=== PATIENT | female | born 1960 | race Caucasian/White ===

== ENCOUNTER 2016-09-24 06:40 | Day surgery (SDC) | payer BC ==
[2016-09-24] MEDS ORDERED: Sodium Chloride 0.9% 10 ML Syringe FLUSH PRN (06:45)
[2016-09-24] MEDS ORDERED: Lactated Ringers 1,000 ML IV SCH (06:45)
[2016-09-24] MEDS ORDERED: Propofol 200 MG/20 ML SDV IV ONE (08:00)
[2016-09-24] MEDS ORDERED: Lidocaine 2% 100 MG/5 ML Syringe IVPUSH ONE (08:00)
[2016-09-24] MEDS ORDERED: Midazolam 1 MG/ML 2 ML SDV IV ONE (08:00)
--- NOTE | 2016-09-24 08:44 | PCM.OPNOTE ---
- General Post-Op/Procedure Note Date of Surgery/Procedure: 09/24/16 Operative Procedure(s): c scope with biopsy Findings: hepatic flexure polyps x 3 distal transverse colon polyp x2 Pre Op Diagnosis: hx of colon polyps with low grade dysplasia Post-Op Diagnosis: hepatic flexure polyps x 3. distal transverse colon polyp x2 Anesthesia Technique: MAC Primary Surgeon: Dominick Morales Anesthesia Provider: Latha Wilson Pathology: hepatic flexure polyps x 3 distal transverse colon polyp x2 Complications: None Condition: Good Free Text/Narrative:: see dictation
[2016-09-24 10:05] VITALS: BP 120/72
--- NOTE | 2016-09-24 14:01 | OR ---
DATE OF OPERATION: 09/24/2016 SURGEON: Dominick Morales MD PROCEDURE PERFORMED: Colonoscopy with cold forceps biopsy. PREOPERATIVE DIAGNOSIS: Personal history of dysplastic colon polyps. POSTOPERATIVE DIAGNOSIS: Hepatic flexure polyps x3 and distal transverse colon polyp x2. INDICATIONS FOR PROCEDURE: This is a 55-year-old white female, who had a colonoscopy last approximately 6 months ago. She had several polyps removed, which demonstrated some dysplasia. She presents now for followup scope. DESCRIPTION OF OPERATION: After an excellent IV sedation was administered, digital rectal exam was performed. No marked abnormality was noted. The flexible colonoscope was inserted and advanced to the cecum without difficulty. The following findings were noted. Ascending colon, unremarkable. Transverse colon; in the previously tattooed the area, there were several flat plaques that were biopsied and sent for permanent. These were all within 2 cm of each other, a total of 3. Then in the distal transverse colon, 2 more similar flap plaques were encountered. These were biopsied and sent for permanent as well. The descending colon was unremarkable. The sigmoid was unremarkable. The rectum and anus were unremarkable. The colon was deflated, as the scope was removed. The patient tolerated the procedure well and was taken to recovery room in good condition. /[id number] /MODL
== END 2016-09-24 09:54 | disposition home or self-care (01) ==
LOC: FB.SDS 06:40
PROVIDERS: ATTEND Surgery
PROC: 0DBL8ZX Excision of Transverse Colon, Via Natural or Artificial Opening Endoscopic, Diagnostic (ICD-10-PCS; principal; 2016-09-24)
PROC: 0DBF8ZX Excision of Right Large Intestine, Via Natural or Artificial Opening Endoscopic, Diagnostic (ICD-10-PCS; 2016-09-24)
DX: D12.3 Benign neoplasm of transverse colon (principal); Z86.010 Personal history of colon polyps; Z79.899 Other long term (current) drug therapy; Z88.8 Allergy status to other drugs, medicaments and biological substances; Z87.891 Personal history of nicotine dependence
CPT/HCPCS: 45380; 88305; J2250; J2704; J7120

== ENCOUNTER 2017-08-08 06:36 | Day surgery (SDC) | payer BC ==
[2017-08-08] MEDS ORDERED: Sodium Chloride 0.9% 10 ML Syringe FLUSH PRN (06:45)
[2017-08-08] MEDS ORDERED: Lactated Ringers 1,000 ML IV SCH (06:45)
[2017-08-08] MEDS ORDERED: Midazolam 1 MG/ML 2 ML SDV IV ONE (08:15)
[2017-08-08] MEDS ORDERED: Propofol 200 MG/20 ML SDV IV ONE (08:15)
--- NOTE | 2017-08-08 08:57 | PCM.OPNOTE ---
- General Post-Op/Procedure Note Date of Surgery/Procedure: 08/08/17 Operative Procedure(s): c scope with bx Findings: polyps at hepatic and transverse colon Pre Op Diagnosis: hx of colon polyps with low grade dysplasia Post-Op Diagnosis: polyps at hepatic and transverse colon Anesthesia Technique: MAC Primary Surgeon: Dominick Morales Anesthesia Provider: Kaci Ni Pathology: polyps at hepatic and transverse colon Complications: None Condition: Good Free Text/Narrative:: see dictation
[2017-08-08 10:21] VITALS: BP 109/65
--- NOTE | 2017-08-08 17:12 | OR ---
DATE OF OPERATION: 08/08/2017 SURGEON: Dominick Morales MD PROCEDURE PERFORMED: Colonoscopy with cold forceps biopsy. PREOPERATIVE DIAGNOSES: History of recurrent hepatic flexure and proximal transverse colon polyps. POSTOPERATIVE DIAGNOSES: Hepatic flexure and proximal transverse colon polyps. INDICATIONS FOR PROCEDURE: This is a 56-year-old white female who has undergone several colonoscopies in the past. She has a history of colonic polyps that developed at the hepatic flexure, these contain low-grade dysplasia. She presents now for followup colonoscopy. DESCRIPTION OF PROCEDURE: After an excellent IV sedation was administered, digital rectal exam was performed, no marked abnormality was noted. Flexible colonoscope was inserted and advanced to the cecum. The prep was excellent. The following findings were noted. Ascending colon unremarkable. Hepatic flexure and proximal transverse colon contained a total of 5 flat plaque-like lesions that appeared to recur in the same area as there was a previous marked tattoo. These were biopsied and submitted in 2 separate containers. Remainder of the transverse colon was unremarkable. The descending colon was unremarkable. Sigmoid and rectum was unremarkable. The colon was deflated as the scope was removed. The patient tolerated the procedure well and was taken to recovery room in good condition. /[id number] /MODL
== END 2017-08-08 09:52 | disposition home or self-care (01) ==
LOC: FB.SDS 06:36
PROVIDERS: ATTEND Surgery
DX: Z09 Encounter for follow-up examination after completed treatment for conditions other than malignant neoplasm (principal); D12.3 Benign neoplasm of transverse colon; Z86.010 Personal history of colon polyps; Z79.899 Other long term (current) drug therapy; Z88.8 Allergy status to other drugs, medicaments and biological substances; Z85.3 Personal history of malignant neoplasm of breast; Z87.891 Personal history of nicotine dependence
CPT/HCPCS: 45380; 88305; J2250; J2704; J7120

== ENCOUNTER 2018-01-16 06:25 | Inpatient (IN) | payer BC ==
[2018-01-16] MEDS: Lactated Ringers 1,000 ML IV SCH ×3 (07:25→20:52)
[2018-01-16] MEDS ORDERED: Neostigmine Methylsulfate 10 MG/10 ML MDV IVPUSH ONE (08:00)
[2018-01-16] MEDS ORDERED: cefOXitin 1 GM in Premix Bag 1 BAG IV ONE (08:00)
[2018-01-16] MEDS ORDERED: Midazolam 1 MG/ML 2 ML SDV IV ONE (08:00)
[2018-01-16] MEDS ORDERED: Propofol 200 MG/20 ML SDV IV ONE (08:00)
[2018-01-16] MEDS ORDERED: Glycopyrrolate 0.2 MG/ML 5 ML MDV IV ONE (08:00)
[2018-01-16] MEDS ORDERED: Lactated Ringers 1,000 ML IV ONE (08:00)
[2018-01-16] MEDS ORDERED: fentaNYL 100 MCG/2 ML SDV IV ONE (08:00)
[2018-01-16] MEDS ORDERED: Dexamethasone 4 MG/ML 5 ML MDV IVPUSH ONE (08:00)
[2018-01-16] MEDS ORDERED: HYDROmorphone 2 MG/ML SDV IV ONE (08:00)
[2018-01-16] MEDS ORDERED: Ketorolac 30 MG/ML SDV IVPUSH ONE (08:00)
[2018-01-16] MEDS ORDERED: Phenylephrine 1% 10 MG/ML SDV IV ONE (08:00)
[2018-01-16] MEDS ORDERED: Ondansetron 4 MG/2 ML SDV IVPUSH ONE (08:00)
[2018-01-16] MEDS ORDERED: Rocuronium 100 MG/10 ML MDV IV ONE (08:00)
[2018-01-16] MEDS ORDERED: Ondansetron 4 MG/2 ML SDV IVPUSH PRN (09:39)
--- NOTE | 2018-01-16 09:39 | PCM.OPNOTE ---
- General Post-Op/Procedure Note Date of Surgery/Procedure: 01/16/18 Operative Procedure(s): transverse colon resection Findings: tattoo from previous endoscopies in mid transverse colon resected with 4 cm margin either side. Pre Op Diagnosis: hx of recurrent dysplastic polyp transverse colon Post-Op Diagnosis: Same Anesthesia Technique: General ET Tube Primary Surgeon: Dominick Morales Anesthesia Provider: Husam Sherwood Pathology: transverse colon Fluid Replacement, Intraop: 2,300 Output, Urine Amount: 100 EBL in mLs: 50 Complications: None Condition: Good Free Text/Narrative:: see dictation
[2018-01-16] MEDS ORDERED: cefOXitin 2 GM in Sodium Chloride 0.9% 50 ML IV SCH (09:45)
[2018-01-16] MEDS ORDERED: Naloxone 0.4 MG/ML SDV IVPUSH PRN (10:04)
[2018-01-16] MEDS: Morphine PF 30 MG/30 ML PCA Vial IV SCH (11:08)
[2018-01-16] MEDS: cefOXitin 2 GM Vial IV SCH ×2 (13:52→20:05)
--- NOTE | 2018-01-16 14:49 | OR ---
DATE OF OPERATION: 01/16/2018 SURGEON: Dominick Morales MD PROCEDURES PERFORMED: Transverse colon resection. PREOPERATIVE DIAGNOSIS: Recurrent dysplastic polyp of the transverse colon. POSTOPERATIVE DIAGNOSIS: Recurrent dysplastic polyp of the transverse colon. INDICATIONS FOR PROCEDURE: This is a 57-year-old white female who has been undergoing recurrent endoscopies every 6 months since we found a sessile dysplastic polyp. On endoscopy, it appeared to be near the hepatic flexure. The area was tattooed and did recur every 6 months, and had some low-grade dysplasia. Due to her inability to obliterate it endoscopically, she was offered and accepted a colon resection. INTRAOPERATIVE FINDINGS: We had originally, based on her endoscopic examination, thought that the polyp was closer to the hepatic flexure. We had prepared the patient for a possible hemicolectomy. However, on inspecting the patient's colon, the tattoo was mid-transverse colon, and this was the area that was resected, approximately 4 cm margin on either side of the area that was tattooed. DESCRIPTION OF PROCEDURE: After an excellent general anesthetic was administered, the patient was prepped and draped in the usual sterile manner. A midline incision was made from the xiphoid process down to just below the umbilicus. Underlying subcu fat was divided using electrocautery and the abdominal cavity was entered. Palpation of the liver and spleen were unremarkable. NG tube appeared to be nicely in the stomach. On inspection of the transverse colon, the marked area was mid-transverse colon, right at the apex of the middle colic vessel. Using the LigaSure, we divided the omentum on either side of this area, approximately 4 cm on each side from the tattooed area. This was carried down to the level of the colon. A small rent was made in the mesocolon, and this was then transected using a LUZ. Given the fact that we knew that this was essentially a benign lesion, we elected just to do a resection of the colon itself and therefore the LigaSure was used to divide the mesentery at the base of the colon. The specimen was then passed off the field. The 2 ends of the colon were then anastomosed with a hand-sewn anastomosis. We started posteriorly, placing a posterior row of interrupted 3-0 Vicryl. We then excised the staple lines after placing bowel clamps on either side of the colon. The innermost layer of the 2 layers was performed using a running 3-0 Vicryl. This was done starting at the midline posteriorly with a simple running suture until we came to the lateral edges of the anastomosis, where a transition stitch was done and we went to a [place] stitch. After closing the inner layer, the Alena stitch was then imbricated using a Lembert stitch of interrupted 3-0 Vicryl. The bowel clamps were released, and the mesentery defect was closed using a running 0 Vicryl. The anastomosis was felt to be patent, and we were able to slosh air from the distal transverse colon through across the anastomosis without any apparent leak. The abdominal cavity was irrigated. The intestines were returned to normal anatomic positions. The midline fascia was closed with a running #2 Prolene and yovanny were used to close the skin. Needle, sponge, and instrument counts were reported as correct. Estimated blood loss was 50 mL. 100 mL of urine was out during the case. She received approximately 2300 mL of crystalloid. /[id number] /MODL
[2018-01-17] MEDS: Lactated Ringers 1,000 ML IV SCH ×2 (04:51→04:52)
[2018-01-17] MEDS: Morphine PF 30 MG/30 ML PCA Vial IV SCH (06:46)
[2018-01-17] MEDS: D5 1/2 NS w/ 20 mEq/L KCl 1,000 ML IV SCH ×2 (08:53→16:57)
[2018-01-17] MEDS: Enoxaparin 40 MG/0.4 ML Syringe SUBCUT SCH (09:25)
--- NOTE | 2018-01-17 10:08 | PCM.SURGPN ---
- General Info Date of Service: 01/17/18 POD#: 1 Functional Status: Reports: Pain Controlled - Review of Systems General: Reports: No Symptoms HEENT: Reports: No Symptoms Pulmonary: Reports: No Symptoms Cardiovascular: Reports: No Symptoms Gastrointestinal: Reports: No Symptoms. Denies: Flatus Neurological: Reports: Other (light headedness) - Patient Data Vitals - Most Recent: Last Vital Signs Temp 98.1 F 01/17/18 07:20 Pulse 67 01/17/18 07:20 Resp 18 01/17/18 07:20 BP 95/66 01/17/18 07:20 Pulse Ox 93 L 01/17/18 07:20 Weight - Most Recent: 68.492 kg I&O - Last 24 Hours: Intake & Output 01/16/18 01/17/18 01/17/18 22:59 06:59 14:59 Intake Total 1189 882 500 Output Total 600 525 Balance 589 357 500 Lab Results Last 24 Hrs: Laboratory Results - last 24 hr 01/17/18 01/17/18 Range/Units 06:20 06:20 WBC 13.8 H (4.5-12.0) X10-3/uL RBC 3.28 (3.23-5.20) x10(6)uL Hgb 10.7 L D (11.5-15.5) g/dL Hct 32.0 D (30.0-51.3) % MCV 97.7 H (80-96) fL MCH 32.6 (27.7-33.6) pg MCHC 33.4 (32.2-35.4) g/dL RDW 13.1 (11.5-15.5) % Plt Count 247 (125-369) X10(3)uL MPV 8.2 (7.4-10.4) fL Add Manual Diff Yes Neutrophils % (Manual) 80 (46-82) % Band Neutrophils % 3 (0-6) % Lymphocytes % (Manual) 15 (13-37) % Monocytes % (Manual) 2 L (4-12) % Sodium 140 (135-145) mmol/L Potassium 4.4 (3.5-5.3) mmol/L Chloride 106 (100-110) mmol/L Carbon Dioxide 24 (21-32) mmol/L BUN 9 (7-18) mg/dL Creatinine 0.7 (0.55-1.02) mg/dL Est Cr Clr Drug Dosing 75.65 mL/min Estimated GFR (MDRD) > 60 (>60) BUN/Creatinine Ratio 12.9 (9-20) Glucose 110 (80-116) mg/dL Calcium 9.0 (8.6-10.2) mg/dL Med Orders - Current: Current Medications Enoxaparin Sodium (Lovenox) 40 mg SUBCUT Q24H [facility] Last Admin: 01/17/18 09:25 Dose: 40 mg Potassium Chloride/Dextrose/Sod Cl (D5 1/2 Ns W/ 20 Meq/L Kcl) 1,000 mls @ 125 mls/hr IV Q8H [facility] Last Admin: 01/17/18 08:53 Dose: 125 mls/hr Morphine Sulfate (Morphine Food Trades Assistants 30 Mg In 30 Ml) 0 mg IV POSTPRO [facility]; Protocol Last Admin: 01/17/18 06:46 Dose: 30 mg Naloxone HCl (Narcan) 0.4 mg IVPUSH Q2M PRN PRN Reason: Respiratory Distress Ondansetron HCl (Zofran) 4 mg IVPUSH Q6H PRN PRN Reason: Nausea/Vomiting Discontinued Medications Cefoxitin Sodium (Mefoxin) 2 gm IV Q6H [facility] Stop: 01/16/18 20:01 Last Admin: 01/16/18 20:05 Dose: 2 gm Cefoxitin Sodium 1 gm/ Premix 50 mls @ 100 mls/hr IV ONETIME ONE Stop: 01/16/18 08:29 Last Admin: 01/16/18 07:59 Dose: 100 mls/hr Lactated Ringer's (Ringers, Lactated) 1,000 mls @ 125 mls/hr IV ASDIRECTED [facility] Last Admin: 01/17/18 04:52 Dose: 125 mls/hr Cefoxitin Sodium 2 gm/ Sodium (Chloride) 50 mls @ 100 mls/hr IV Q6H [facility] - Exam Wound/Incisions: Dressing Dry and Intact General: Alert, Oriented Lungs: Clear to Auscultation, Normal Respiratory Effort Cardiovascular: Regular Rate, Regular Rhythm GI/Abdominal Exam: Normal Bowel Sounds, Soft - Problem List & Annotations (1) Status post colectomy SNOMED Code(s): 824135228, 98619618, 53233821, 094539367 Code(s): Z90.49 - ACQUIRED ABSENCE OF OTHER SPECIFIED PARTS OF DIGESTIVE TRACT Status: Acute Current Visit: Yes Annotation/Comment:: transverse - Problem List Review Problem List Initiated/Reviewed/Updated: Yes - My Orders Last 24 Hours: Active Orders 24 hr Category Date Time Status Antiembolic Devices [RC] 08,16,00 Care 01/16/18 09:42 Active Communication Order [RC] ROUTINE Care 01/16/18 17:50 Active Communication Order [RC] STAT Care 01/16/18 10:04 Active Head of Bed Elevation [RC] 08,16,00 Care 01/16/18 09:40 Active Intake and Output [RC] ,, Care 01/16/18 09:40 Active Notify Provider Intake and Out [RC] ,, Care 01/16/18 09:41 Active Notify Provider Vital Signs [RC] PRN Care 01/16/18 09:40 Active Notify Provider [RC] PRN Care 01/16/18 10:04 Active Oxygen Therapy [RC] PRN Care 01/16/18 09:[address] MANAGER Record [RC] ,, Care 01/16/18 10:04 Active Pulse Oximetry [RC] CONTINUOUS Care 01/16/18 10:04 Active RT Incentive Spirometry [RC] Q2HWA Care 01/16/18 09:39 Active Up With Assistance [RC] 09,13,17,21 Care 01/16/18 09:39 Active Vital Signs [RC] 04,08,12,16,20,00 Care 01/16/18 09:39 Active D5 1/2 NS w/ 20 mEq/L KCl 1,000 ml Med 01/17/18 08:30 Active IV Q8H Enoxaparin [Lovenox] Med 01/17/18 09:00 Active 40 mg SUBCUT Q24H Morphine PF [Morphine PERFORMING [employer] MANAGER 30 MG in 30 ML] Med 01/16/18 09:45 Active 0 mg IV POSTPRO Naloxone [Narcan] Med 01/16/18 10:04 Active 0.4 mg IVPUSH Q2M PRN Ondansetron [Zofran] Med 01/16/18 09:39 Active 4 mg IVPUSH Q6H PRN DVT/VTE Prophylaxis Reflex [OM.PC] Per Unit Routine Oth 01/16/18 09:42 Ordered Medication Discontinuation Instructions [OM.PC] Stat Oth 01/16/18 10:04 Ordered Medication Orders Enoxaparin Sodium (Lovenox) 40 mg SUBCUT Q24H [facility] Last Admin: 01/17/18 09:25 Dose: 40 mg Potassium Chloride/Dextrose/Sod Cl (D5 1/2 Ns W/ 20 Meq/L Kcl) 1,000 mls @ 125 mls/hr IV Q8H [facility] Last Admin: 01/17/18 08:53 Dose: 125 mls/hr Morphine Sulfate (Morphine Food Trades Assistants 30 Mg In 30 Ml) 0 mg IV POSTPRO [facility]; Protocol Last Admin: 01/17/18 06:46 Dose: 30 mg Admin: 01/16/18 11:08 Dose: 30 mg Naloxone HCl (Narcan) 0.4 mg IVPUSH Q2M PRN PRN Reason: Respiratory Distress Ondansetron HCl (Zofran) 4 mg IVPUSH Q6H PRN PRN Reason: Nausea/Vomiting - Assessment Assessment (Free Text/Narrative):: doing well - Plan Plan (Free Text/Narrative):: d/c lawrence continue current rx sq lovenox.
[2018-01-18] MEDS: D5 1/2 NS w/ 20 mEq/L KCl 1,000 ML IV SCH ×3 (00:06→21:45)
--- NOTE | 2018-01-18 07:13 | PCM.SURGPN ---
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 ) - Patient Data Vitals - Most Recent: Last Vital Signs Temp 98.1 F 01/18/18 04:30 Pulse 71 01/18/18 04:30 Resp 20 01/18/18 04:30 BP 123/81 01/18/18 04:30 Pulse Ox 96 01/18/18 04:30 Weight - Most Recent: 68.492 kg I&O - Last 24 Hours: Intake & Output 01/17/18 01/18/18 01/18/18 22:59 06:59 14:59 Intake Total 1111 1120 Output Total 2300 2400 Balance -1189 -1280 Med Orders - Current: Current Medications Enoxaparin Sodium (Lovenox) 40 mg SUBCUT Q24H [facility] Last Admin: 01/17/18 09:25 Dose: 40 mg Potassium Chloride/Dextrose/Sod Cl (D5 1/2 Ns W/ 20 Meq/L Kcl) 1,000 mls @ 125 mls/hr IV Q8H [facility] Last Admin: 01/18/18 00:06 Dose: 125 mls/hr Morphine Sulfate (Morphine Exercise Rider 30 Mg In 30 Ml) 0 mg IV POSTPRO [facility]; Protocol Last Admin: 01/17/18 06:46 Dose: 30 mg Naloxone HCl (Narcan) 0.4 mg IVPUSH Q2M PRN PRN Reason: Respiratory Distress Ondansetron HCl (Zofran) 4 mg IVPUSH Q6H PRN PRN Reason: Nausea/Vomiting Discontinued Medications Cefoxitin Sodium (Mefoxin) 2 gm IV Q6H [facility] Stop: 01/16/18 20:01 Last Admin: 01/16/18 20:05 Dose: 2 gm Cefoxitin Sodium 1 gm/ Premix 50 mls @ 100 mls/hr IV ONETIME ONE Stop: 01/16/18 08:29 Last Admin: 01/16/18 07:59 Dose: 100 mls/hr Lactated Ringer's (Ringers, Lactated) 1,000 mls @ 125 mls/hr IV ASDIRECTED [facility] Last Admin: 01/17/18 04:52 Dose: 125 mls/hr Cefoxitin Sodium 2 gm/ Sodium (Chloride) 50 mls @ 100 mls/hr IV Q6H [facility] - Exam Wound/Incisions: Dressing Dry and Intact General: Alert, Cooperative, No Acute Distress Lungs: Clear to Auscultation, Normal Respiratory Effort Cardiovascular: Regular Rate, Regular Rhythm GI/Abdominal Exam: Normal Bowel Sounds, Soft, Other (mild incisional tenderness ) Skin: Warm, Dry, Intact - Problem List & Annotations (1) Status post colectomy SNOMED Code(s): 123445857, 31000022, 03043874, 921949593 Code(s): Z90.49 - ACQUIRED ABSENCE OF OTHER SPECIFIED PARTS OF DIGESTIVE TRACT Status: Acute Current Visit: Yes Annotation/Comment:: transverse - Problem List Review Problem List Initiated/Reviewed/Updated: Yes - My Orders Last 24 Hours: Active Orders 24 hr Category Date Time Status D5 1/2 NS w/ 20 mEq/L KCl 1,000 ml Med 01/17/18 08:30 Active IV Q8H Enoxaparin [Lovenox] Med 01/17/18 09:00 Active 40 mg SUBCUT Q24H Medication Orders Enoxaparin Sodium (Lovenox) 40 mg SUBCUT Q24H [facility] Last Admin: 01/17/18 09:25 Dose: 40 mg Potassium Chloride/Dextrose/Sod Cl (D5 1/2 Ns W/ 20 Meq/L Kcl) 1,000 mls @ 125 mls/hr IV Q8H [facility] Last Admin: 01/18/18 00:06 Dose: 125 mls/hr Infusion: 01/18/18 00:06 Dose: 125 mls/hr Admin: 01/17/18 16:57 Dose: 125 mls/hr Infusion: 01/17/18 16:53 Dose: 125 mls/hr Admin: 01/17/18 08:53 Dose: 125 mls/hr Morphine Sulfate (Morphine Exercise Rider 30 Mg In 30 Ml) 0 mg IV POSTPRO [facility]; Protocol Last Admin: 01/17/18 06:46 Dose: 30 mg Admin: 01/16/18 11:08 Dose: 30 mg Naloxone HCl (Narcan) 0.4 mg IVPUSH Q2M PRN PRN Reason: Respiratory Distress Ondansetron HCl (Zofran) 4 mg IVPUSH Q6H PRN PRN Reason: Nausea/Vomiting - Assessment Assessment (Free Text/Narrative):: Doing well mobilizing fluids - Plan Plan (Free Text/Narrative):: decrease IVF rate continue current rx.
[2018-01-18] MEDS: Enoxaparin 40 MG/0.4 ML Syringe SUBCUT SCH (08:50)
[2018-01-18] MEDS ORDERED: Morphine 2 MG/ML Syringe IVPUSH PRN (10:00)
--- NOTE | 2018-01-19 07:45 | PCM.SURGPN ---
- General Info Date of Service: 01/19/18 POD#: 3 Functional Status: Reports: Pain Controlled, Ambulating, Urinating, Incentive Spirometry - Review of Systems Gastrointestinal: Denies: Flatus - Patient Data Vitals - Most Recent: Last Vital Signs Temp 98.7 F 01/19/18 07:22 Pulse 57 L 01/19/18 07:22 Resp 12 01/19/18 07:22 BP 128/82 01/19/18 07:22 Pulse Ox 95 01/19/18 07:22 Weight - Most Recent: 68.492 kg I&O - Last 24 Hours: Intake & Output 01/18/18 01/19/18 01/19/18 22:59 06:59 14:59 Intake Total 576 613 Output Total 1100 600 Balance -524 13 Med Orders - Current: Current Medications Enoxaparin Sodium (Lovenox) 40 mg SUBCUT Q24H [facility] Last Admin: 01/18/18 08:50 Dose: 40 mg Potassium Chloride/Dextrose/Sod Cl (D5 1/2 Ns W/ 20 Meq/L Kcl) 1,000 mls @ 75 mls/hr IV Q8H [facility] Last Admin: 01/18/18 21:45 Dose: 125 mls/hr Morphine Sulfate (Morphine) 2 mg IVPUSH Q2H PRN PRN Reason: PAIN Ondansetron HCl (Zofran) 4 mg IVPUSH Q6H PRN PRN Reason: Nausea/Vomiting Discontinued Medications Cefoxitin Sodium (Mefoxin) 2 gm IV Q6H [facility] Stop: 01/16/18 20:01 Last Admin: 01/16/18 20:05 Dose: 2 gm Cefoxitin Sodium 1 gm/ Premix 50 mls @ 100 mls/hr IV ONETIME ONE Stop: 01/16/18 08:29 Last Admin: 01/16/18 07:59 Dose: 100 mls/hr Lactated Ringer's (Ringers, Lactated) 1,000 mls @ 125 mls/hr IV ASDIRECTED [facility] Last Admin: 01/17/18 04:52 Dose: 125 mls/hr Cefoxitin Sodium 2 gm/ Sodium (Chloride) 50 mls @ 100 mls/hr IV Q6H [facility] Morphine Sulfate (Morphine Absorption And Adsorption Engineer 30 Mg In 30 Ml) 0 mg IV POSTPRO PATTI; Protocol Last Admin: 01/17/18 06:46 Dose: 30 mg Morphine Sulfate (Morphine Sulfate) 2 mg IV Q2H PRN PRN Reason: PAIN Naloxone HCl (Narcan) 0.4 mg IVPUSH Q2M PRN PRN Reason: Respiratory Distress - Exam Wound/Incisions: Dressing Dry and Intact General: Alert, Cooperative, No Acute Distress Lungs: Clear to Auscultation, Normal Respiratory Effort Cardiovascular: Regular Rate, Regular Rhythm GI/Abdominal Exam: Normal Bowel Sounds, Soft, No Distention Skin: Warm, Dry, Intact - Problem List & Annotations (1) Status post colectomy SNOMED Code(s): 565055500, 64600875, 14611971, 571446881 Code(s): Z90.49 - ACQUIRED ABSENCE OF OTHER SPECIFIED PARTS OF DIGESTIVE TRACT Status: Acute Current Visit: Yes Annotation/Comment:: transverse - Problem List Review Problem List Initiated/Reviewed/Updated: Yes - My Orders Last 24 Hours: Active Orders 24 hr Category Date Time Status May Shower [RC] ASDIRECTED Care 01/19/18 07:43 Ordered Morphine Med 01/18/18 10:00 Active 2 mg IVPUSH Q2H PRN Medication Orders Enoxaparin Sodium (Lovenox) 40 mg SUBCUT Q24H [facility] Last Admin: 01/18/18 08:50 Dose: 40 mg Admin: 01/17/18 09:25 Dose: 40 mg Potassium Chloride/Dextrose/Sod Cl (D5 1/2 Ns W/ 20 Meq/L Kcl) 1,000 mls @ 75 mls/hr IV Q8H [facility] Last Admin: 01/18/18 21:45 Dose: 125 mls/hr Infusion: 01/18/18 15:54 Dose: 125 mls/hr Admin: 01/18/18 07:54 Dose: 125 mls/hr Infusion: 01/18/18 07:54 Dose: 125 mls/hr Admin: 01/18/18 00:06 Dose: 125 mls/hr Infusion: 01/18/18 00:06 Dose: 125 mls/hr Admin: 01/17/18 16:57 Dose: 125 mls/hr Infusion: 01/17/18 16:53 Dose: 125 mls/hr Admin: 01/17/18 08:53 Dose: 125 mls/hr Morphine Sulfate (Morphine) 2 mg IVPUSH Q2H PRN PRN Reason: PAIN Ondansetron HCl (Zofran) 4 mg IVPUSH Q6H PRN PRN Reason: Nausea/Vomiting - Assessment Assessment (Free Text/Narrative):: Doing very well no flatus but essentially normal abd exam - Plan Plan (Free Text/Narrative):: will allow to shower. continue ambulation
[2018-01-19] MEDS: Enoxaparin 40 MG/0.4 ML Syringe SUBCUT SCH (09:18)
[2018-01-19] MEDS: D5 1/2 NS w/ 20 mEq/L KCl 1,000 ML IV SCH ×3 (11:53→13:40)
[2018-01-19] MEDS ORDERED: traMADol 50 MG Tab PO PRN (17:48)
--- NOTE | 2018-01-19 17:50 | PCM.SN ---
- Free Text/Narrative Note: flatus all day today. will start clear liquid diet. oral pain meds if needed.
[2018-01-20] MEDS: D5 1/2 NS w/ 20 mEq/L KCl 1,000 ML IV SCH ×2 (01:03→14:28)
--- NOTE | 2018-01-20 09:02 | PCM.SURGPN ---
- General Info Date of Service: 01/20/18 POD#: 4 Functional Status: Reports: Pain Controlled, Tolerating Diet, Urinating - Review of Systems Pulmonary: Reports: No Symptoms Cardiovascular: Reports: No Symptoms Gastrointestinal: Reports: Other (a little bit of bloating this am still passing gas) - Patient Data Vitals - Most Recent: Last Vital Signs Temp 98.2 F 01/20/18 04:00 Pulse 59 L 01/20/18 04:00 Resp 17 01/20/18 04:00 BP 120/63 01/20/18 04:00 Pulse Ox 94 L 01/20/18 04:00 Weight - Most Recent: 68.492 kg I&O - Last 24 Hours: Intake & Output 01/19/18 01/20/18 01/20/18 22:59 06:59 14:59 Intake Total 615 672 Output Total 200 Balance 415 672 Med Orders - Current: Current Medications Enoxaparin Sodium (Lovenox) 40 mg SUBCUT Q24H [facility] Last Admin: 01/19/18 09:18 Dose: 40 mg Potassium Chloride/Dextrose/Sod Cl (D5 1/2 Ns W/ 20 Meq/L Kcl) 1,000 mls @ 75 mls/hr IV Q13H [facility] Last Admin: 01/20/18 01:03 Dose: 75 mls/hr Ondansetron HCl (Zofran) 4 mg IVPUSH Q6H PRN PRN Reason: Nausea/Vomiting Tramadol HCl (Ultram) 100 mg PO Q6H PRN PRN Reason: Pain Discontinued Medications Cefoxitin Sodium (Mefoxin) 2 gm IV Q6H [facility] Stop: 01/16/18 20:01 Last Admin: 01/16/18 20:05 Dose: 2 gm Cefoxitin Sodium 1 gm/ Premix 50 mls @ 100 mls/hr IV ONETIME ONE Stop: 01/16/18 08:29 Last Admin: 01/16/18 07:59 Dose: 100 mls/hr Lactated Ringer's (Ringers, Lactated) 1,000 mls @ 125 mls/hr IV ASDIRECTED [facility] Last Admin: 01/17/18 04:52 Dose: 125 mls/hr Cefoxitin Sodium 2 gm/ Sodium (Chloride) 50 mls @ 100 mls/hr IV Q6H [facility] Potassium Chloride/Dextrose/Sod Cl (D5 1/2 Ns W/ 20 Meq/L Kcl) 1,000 mls @ 75 mls/hr IV Q8H [facility] Last Admin: 01/19/18 13:40 Dose: Not Given Morphine Sulfate (Morphine Statistical Clerk Advertising 30 Mg In 30 Ml) 0 mg IV POSTPRO PATTI; Protocol Last Admin: 01/17/18 06:46 Dose: 30 mg Morphine Sulfate (Morphine Sulfate) 2 mg IV Q2H PRN PRN Reason: PAIN Morphine Sulfate (Morphine) 2 mg IVPUSH Q2H PRN PRN Reason: PAIN Naloxone HCl (Narcan) 0.4 mg IVPUSH Q2M PRN PRN Reason: Respiratory Distress - Exam Wound/Incisions: Healing Well General: Alert, Cooperative, No Acute Distress Lungs: Clear to Auscultation, Normal Respiratory Effort Cardiovascular: Regular Rate, Regular Rhythm GI/Abdominal Exam: Normal Bowel Sounds, No Distention Skin: Warm, Dry, Intact - Problem List & Annotations (1) Status post colectomy SNOMED Code(s): 441986228, 85312542, 34375587, 547130684 Code(s): Z90.49 - ACQUIRED ABSENCE OF OTHER SPECIFIED PARTS OF DIGESTIVE TRACT Status: Acute Current Visit: Yes Annotation/Comment:: transverse - Problem List Review Problem List Initiated/Reviewed/Updated: Yes - My Orders Last 24 Hours: Active Orders 24 hr Category Date Time Status Clear Liquid Diet [DIET] Diet 01/20/18 Dinner Active D5 1/2 NS w/ 20 mEq/L KCl 1,000 ml Med 01/19/18 11:45 Active IV Q13H traMADol [Ultram] Med 01/19/18 17:48 Active 100 mg PO Q6H PRN Medication Orders Enoxaparin Sodium (Lovenox) 40 mg SUBCUT Q24H [facility] Last Admin: 01/19/18 09:18 Dose: 40 mg Admin: 01/18/18 08:50 Dose: 40 mg Admin: 01/17/18 09:25 Dose: 40 mg Potassium Chloride/Dextrose/Sod Cl (D5 1/2 Ns W/ 20 Meq/L Kcl) 1,000 mls @ 75 mls/hr IV Q13H [facility] Last Admin: 01/20/18 01:03 Dose: 75 mls/hr Infusion: 01/20/18 01:03 Dose: 75 mls/hr Admin: 01/19/18 11:53 Dose: 75 mls/hr Ondansetron HCl (Zofran) 4 mg IVPUSH Q6H PRN PRN Reason: Nausea/Vomiting Tramadol HCl (Ultram) 100 mg PO Q6H PRN PRN Reason: Pain - Assessment Assessment (Free Text/Narrative):: some abd discomfort the start of the diet. - Plan Plan (Free Text/Narrative):: will continue clears today. encourage ambulation
[2018-01-20] MEDS: Enoxaparin 40 MG/0.4 ML Syringe SUBCUT SCH (09:55)
[2018-01-20] MEDS ORDERED: traMADol 50 MG Tab PO PRN (17:14)
[2018-01-21] MEDS: D5 1/2 NS w/ 20 mEq/L KCl 1,000 ML IV SCH (04:15)
--- NOTE | 2018-01-21 08:26 | PCM.DCSUM1 ---
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 Did very well postoperatively. Starkey was removed on POD #1. She had excellent pain control and the LEAD PRESSMAN was eventually weaned off. On POD #3 she had a return of flatus and was started on clear liquids, had some mild distention the following day but this resolved with ambulation. On the evening of POD#4 she had two bowel movements and was advanced to a regular diet which she is tolerating. She is felt to be ready for discharge and would like to go home. Diagnosis: Stroke: No - Discharge Data Discharge Date: 18 Discharge Disposition: Home, Self-Care 01 Condition: Good - Discharge Diagnosis/Problem(s) (1) Status post colectomy SNOMED Code(s): 180539451, 70687077, 87992768, [id number] ICD Code: Z90.49 - ACQUIRED ABSENCE OF OTHER SPECIFIED PARTS OF DIGESTIVE TRACT Status: Acute Current Visit: Yes Problem Details: transverse - Patient Summary/Data Operative Procedure(s) Performed: transverse colon resection Complications: none - Patient Instructions Diet: Usual Diet as Tolerated Activity: No Lifting Over 25 Pounds, No Strenuous Activities Driving: Do Not Drive Showering/Bathing: May Shower, No Tub Bathing/Swimming Wound/Incision, Other: may get wound wet in shower Notify Provider of: Fever, Increased Pain, Swelling and Redness - Discharge Plan *PRESCRIPTION DRUG MONITORING PROGRAM REVIEWED*: Yes *COPY OF PRESCRIPTION DRUG MONITORING REPORT IN PATIENT BOBBY: Yes Home Medications: Home Meds Calcium Carbonate [Super Calcium] 600 mg PO DAILY 12/11/15 [History] EPINEPHrine [Epipen 2-Dioni] 0.3 mg IM ASDIRECTED PRN 12/11/15 [History] Multivitamin [Multivitamins] 1 tab PO DAILY 12/11/15 [History] Ibuprofen [Motrin] 800 mg PO TIDMEALS PRN 09/23/ [History] Acetaminophen/traMADol [Ultracet] 1 - 2 tab PO Q6H PRN #30 tab 01/21/18 [Rx] Docusate Sodium [Colace] 100 mg PO BID #20 capsule 01/21/18 [Rx] Patient Handouts: LEAD PRESSMAN Pump Information, Open Colectomy, Care After, Fall Prevention in Hospitals, Adult, Venous Thromboembolism Prevention Referrals: Dominick Morales MD [Physician] - 01/26/18 (for yovanny ) - Discharge Summary/Plan Comment DC Time >30 min.: No - Patient Data Vitals - Most Recent: Last Vital Signs Temp 97.8 F 01/21/18 04:00 Pulse 63 01/21/18 04:00 Resp 16 01/21/18 04:00 BP 105/67 01/21/18 04:00 Pulse Ox 94 L 01/21/18 04:00 Weight - Most Recent: 68.492 kg I&O - Last 24 hours: Intake & Output 01/20/18 01/21/18 01/21/18 22:59 06:59 14:59 Intake Total 780 728 Output Total 350 600 Balance 430 128 Med Orders - Current: Current Medications Enoxaparin Sodium (Lovenox) 40 mg SUBCUT Q24H [facility] Last Admin: 01/20/18 09:55 Dose: 40 mg Potassium Chloride/Dextrose/Sod Cl (D5 1/2 Ns W/ 20 Meq/L Kcl) 1,000 mls @ 75 mls/hr IV Q13H [facility] Last Admin: 01/21/18 04:15 Dose: 75 mls/hr Ondansetron HCl (Zofran) 4 mg IVPUSH Q6H PRN PRN Reason: Nausea/Vomiting Tramadol HCl (Ultram) 50 mg PO Q6H PRN PRN Reason: Pain Discontinued Medications Cefoxitin Sodium (Mefoxin) 2 gm IV Q6H [facility] Stop: 01/16/18 20:01 Last Admin: 01/16/18 20:05 Dose: 2 gm Cefoxitin Sodium 1 gm/ Premix 50 mls @ 100 mls/hr IV ONETIME ONE Stop: 01/16/18 08:29 Last Admin: 01/16/18 07:59 Dose: 100 mls/hr Lactated Ringer's (Ringers, Lactated) 1,000 mls @ 125 mls/hr IV ASDIRECTED [facility] Last Admin: 01/17/18 04:52 Dose: 125 mls/hr Cefoxitin Sodium 2 gm/ Sodium (Chloride) 50 mls @ 100 mls/hr IV Q6H [facility] Potassium Chloride/Dextrose/Sod Cl (D5 1/2 Ns W/ 20 Meq/L Kcl) 1,000 mls @ 75 mls/hr IV Q8H [facility] Last Admin: 01/19/18 13:40 Dose: Not Given Morphine Sulfate (Morphine Cutter First 30 Mg In 30 Ml) 0 mg IV POSTPRO PATTI; Protocol Last Admin: 01/17/18 06:46 Dose: 30 mg Morphine Sulfate (Morphine Sulfate) 2 mg IV Q2H PRN PRN Reason: PAIN Morphine Sulfate (Morphine) 2 mg IVPUSH Q2H PRN PRN Reason: PAIN Naloxone HCl (Narcan) 0.4 mg IVPUSH Q2M PRN PRN Reason: Respiratory Distress Tramadol HCl (Ultram) 100 mg PO Q6H PRN PRN Reason: Pain Last Admin: 01/20/18 09:51 Dose: 100 mg
[2018-01-21] MEDS: Enoxaparin 40 MG/0.4 ML Syringe SUBCUT SCH (08:32)
--- NOTE | 2018-01-21 08:34 | PCM.SURGPN ---
- General Info Date of Service: 01/21/18 POD#: 5 Functional Status: Reports: Pain Controlled, Tolerating Diet, Ambulating, Urinating - Review of Systems General: Reports: No Symptoms Pulmonary: Reports: No Symptoms Cardiovascular: Reports: No Symptoms Gastrointestinal: Reports: No Symptoms - Patient Data Vitals - Most Recent: Last Vital Signs Temp 97.8 F 01/21/18 04:00 Pulse 63 01/21/18 04:00 Resp 16 01/21/18 04:00 BP 105/67 01/21/18 04:00 Pulse Ox 94 L 01/21/18 04:00 Weight - Most Recent: 68.492 kg I&O - Last 24 Hours: Intake & Output 01/20/18 01/21/18 01/21/18 22:59 06:59 14:59 Intake Total 780 728 Output Total 350 600 Balance 430 128 Med Orders - Current: Current Medications Enoxaparin Sodium (Lovenox) 40 mg SUBCUT Q24H [facility] Last Admin: 01/21/18 08:32 Dose: 40 mg Potassium Chloride/Dextrose/Sod Cl (D5 1/2 Ns W/ 20 Meq/L Kcl) 1,000 mls @ 75 mls/hr IV Q13H [facility] Last Admin: 01/21/18 04:15 Dose: 75 mls/hr Ondansetron HCl (Zofran) 4 mg IVPUSH Q6H PRN PRN Reason: Nausea/Vomiting Tramadol HCl (Ultram) 50 mg PO Q6H PRN PRN Reason: Pain Discontinued Medications Cefoxitin Sodium (Mefoxin) 2 gm IV Q6H [facility] Stop: 01/16/18 20:01 Last Admin: 01/16/18 20:05 Dose: 2 gm Cefoxitin Sodium 1 gm/ Premix 50 mls @ 100 mls/hr IV ONETIME ONE Stop: 01/16/18 08:29 Last Admin: 01/16/18 07:59 Dose: 100 mls/hr Lactated Ringer's (Ringers, Lactated) 1,000 mls @ 125 mls/hr IV ASDIRECTED [facility] Last Admin: 01/17/18 04:52 Dose: 125 mls/hr Cefoxitin Sodium 2 gm/ Sodium (Chloride) 50 mls @ 100 mls/hr IV Q6H [facility] Potassium Chloride/Dextrose/Sod Cl (D5 1/2 Ns W/ 20 Meq/L Kcl) 1,000 mls @ 75 mls/hr IV Q8H [facility] Last Admin: 01/19/18 13:40 Dose: Not Given Morphine Sulfate (Morphine Filling Hand 30 Mg In 30 Ml) 0 mg IV POSTPRO PATTI; Protocol Last Admin: 01/17/18 06:46 Dose: 30 mg Morphine Sulfate (Morphine Sulfate) 2 mg IV Q2H PRN PRN Reason: PAIN Morphine Sulfate (Morphine) 2 mg IVPUSH Q2H PRN PRN Reason: PAIN Naloxone HCl (Narcan) 0.4 mg IVPUSH Q2M PRN PRN Reason: Respiratory Distress Tramadol HCl (Ultram) 100 mg PO Q6H PRN PRN Reason: Pain Last Admin: 01/20/18 09:51 Dose: 100 mg - Exam Wound/Incisions: Healing Well General: Alert, Oriented Lungs: Clear to Auscultation, Normal Respiratory Effort Cardiovascular: Regular Rate, Regular Rhythm GI/Abdominal Exam: Normal Bowel Sounds, Soft, Non-Tender - Problem List & Annotations (1) Status post colectomy SNOMED Code(s): 635642482, 53571629, 07993127, 714670074 Code(s): Z90.49 - ACQUIRED ABSENCE OF OTHER SPECIFIED PARTS OF DIGESTIVE TRACT Status: Acute Current Visit: Yes Annotation/Comment:: transverse - Problem List Review Problem List Initiated/Reviewed/Updated: Yes - My Orders Last 24 Hours: Active Orders 24 hr Category Date Time Status Full Liquid Diet [DIET] Diet 01/21/18 Dinner Active Regular Diet [DIET] Diet 01/21/18 Breakfast Active traMADol [Ultram] Med 01/20/18 17:14 Active 50 mg PO Q6H PRN Medication Orders Enoxaparin Sodium (Lovenox) 40 mg SUBCUT Q24H [facility] Last Admin: 01/21/18 08:32 Dose: 40 mg Admin: 01/20/18 09:55 Dose: 40 mg Admin: 01/19/18 09:18 Dose: 40 mg Admin: 01/18/18 08:50 Dose: 40 mg Admin: 01/17/18 09:25 Dose: 40 mg Potassium Chloride/Dextrose/Sod Cl (D5 1/2 Ns W/ 20 Meq/L Kcl) 1,000 mls @ 75 mls/hr IV Q13H [facility] Last Admin: 01/21/18 04:15 Dose: 75 mls/hr Infusion: 01/21/18 03:48 Dose: 75 mls/hr Admin: 01/20/18 14:28 Dose: 75 mls/hr Infusion: 01/20/18 14:23 Dose: 75 mls/hr Admin: 01/20/18 01:03 Dose: 75 mls/hr Infusion: 01/20/18 01:03 Dose: 75 mls/hr Admin: 01/19/18 11:53 Dose: 75 mls/hr Ondansetron HCl (Zofran) 4 mg IVPUSH Q6H PRN PRN Reason: Nausea/Vomiting Tramadol HCl (Ultram) 50 mg PO Q6H PRN PRN Reason: Pain - Assessment Assessment (Free Text/Narrative):: ready for discharge - Plan Plan (Free Text/Narrative):: see d/c plans
[2018-01-21 09:07] VITALS: BP 106/71
== END 2018-01-21 12:15 | disposition home or self-care (01) | DRG 223 ==
LOC: FB.MS 06:25
PROVIDERS: ADMIT Surgery; ATTEND Surgery
PROC: 0DBL0ZX Excision of Transverse Colon, Open Approach, Diagnostic (ICD-10-PCS; principal; 2018-01-16)
DX: K63.5 Polyp of colon (principal); D12.3 Benign neoplasm of transverse colon; Z85.3 Personal history of malignant neoplasm of breast; Z86.010 Personal history of colon polyps; Z87.891 Personal history of nicotine dependence; Z88.8 Allergy status to other drugs, medicaments and biological substances
CPT/HCPCS: 36415; 80048; 80053; 85025; 86850; 86900; 86901; 88307; 94150; A9270-GY; J0694; J1100; J1170; J1650; J1885; J2250; J2274; J2370; J2405; J2704; J2710; J3010; J3480; J3490; J7120

== ENCOUNTER 2019-07-02 06:59 | Day surgery (SDC) | payer BC ==
[2019-07-02] MEDS ORDERED: Propofol 200 MG/20 ML SDV IV ONE (07:00)
[2019-07-02] MEDS ORDERED: Lactated Ringers 1,000 ML IV ONE (07:00)
[2019-07-02] MEDS ORDERED: Sodium Chloride 0.9% 10 ML Syringe FLUSH PRN (07:15)
[2019-07-02] MEDS ORDERED: Lactated Ringers 1,000 ML IV SCH (07:15)
--- NOTE | 2019-07-02 09:40 | PCM.OPNOTE ---
- General Post-Op/Procedure Note Date of Surgery/Procedure: 07/02/19 Operative Procedure(s): c scope with biopsy Findings: transverse colon x3 polyp descending colon polyp x1 Pre Op Diagnosis: hx of dysplastic colon polyp Post-Op Diagnosis: transverse colon polyp x3. descending colon polyp x1 Anesthesia Technique: MAC Primary Surgeon: Dominick Morales Anesthesia Provider: Husam Sherwood Pathology: transverse colon polyp x3 descending colon polyp x1 Complications: None Condition: Good Free Text/Narrative:: see dictation
[2019-07-02 10:26] VITALS: BP 119/52; PULSE 55
--- NOTE | 2019-07-02 15:19 | OR ---
DATE OF OPERATION: 07/02/2019 SURGEON: Dominick Morales MD PROCEDURE PERFORMED: Colonoscopy with cold forceps biopsy. PREOPERATIVE DIAGNOSIS: Personal history of dysplastic colon polyps. POSTOPERATIVE DIAGNOSIS: Transverse colon polyp x3 and descending colon polyp x1. INDICATIONS FOR PROCEDURE: This is a 58-year-old white female who has a personal history of colon polyps with some dysplasia. She presents now for followup scope. DESCRIPTION OF OPERATION: After an excellent IV sedation was administered, digital rectal exam was performed. No marked abnormality was noted. The flexible colonoscope was inserted and advanced to the cecum. The prep was excellent. The following findings were noted. Ascending colon, unremarkable. Transverse colon, in the distal transverse colon, there were 2 plaque-like lesions surrounded by what appeared to be a brown ring. These were biopsied and then just distal to this was a raised area of mucosa that while it did not have an appearance of an obvious adenoma was biopsied and submitted in the same container as it did have a polypoid appearance. The descending colon, an additional area appeared to be adenomatous tissue with brown tissue ring surrounding it was also identified. This was biopsied and submitted in 1 container. Sigmoid and rectum were unremarkable. The patient tolerated the procedure well and was taken to recovery in good condition. Results will be sent to the patient by letter. /[id number] /[id number]
== END 2019-07-02 10:28 | disposition home or self-care (01) ==
LOC: FB.SDS 06:59
PROVIDERS: ATTEND Surgery
DX: Z09 Encounter for follow-up examination after completed treatment for conditions other than malignant neoplasm (principal); D12.3 Benign neoplasm of transverse colon; D12.4 Benign neoplasm of descending colon; Z87.891 Personal history of nicotine dependence; Z91.030 Bee allergy status; Z88.8 Allergy status to other drugs, medicaments and biological substances; Z90.49 Acquired absence of other specified parts of digestive tract
CPT/HCPCS: 88305; J2704; J7120